=== PATIENT | female | born 1930 ===

== ENCOUNTER 2016-06-28 13:24 | Outpatient (CLI) | payer MEDICARE ==
[2016-06-28 13:57] LABS: Basophils % (Auto) 0.6 % (0.0-1.8); Eosinophils % (Auto) 1.6 % (0.0-4.3); Hematocrit 27.9 % (30.3-42.9); Hemoglobin 8.7 gm/dl (10.1-14.3); Mean Corpuscular HGB Conc 31 % (30-34); Mean Corpuscular Volume 80 fl (79-97); Red Blood Count 3.47 M/mm3 (3.65-5.03); Red Cell Distribution Width 13.2 % (13.2-15.2); White Blood Count 3.4 K/mm3 (4.5-11.0)
[2016-06-28 14:07] LABS: Mean Corpuscular Hemoglobin 25 pg (28-32); Platelet Count 57 K/mm3 (140-440)
[2016-06-28 14:11] LABS: Albumin 3.2 g/dL (3.9-5); Albumin/Globulin Ratio 0.9 %; BUN/Creatinine Ratio 50.71; Bilirubin,Total 0.6 mg/dL (0.1-1.2); C-Reactive Protein 0.6 mg/dL (0.00-1.30); Calcium 9.1 mg/dL (8.4-10.2); Chloride 102.9 mmol/L (98-107); Potassium 3.6 mmol/L (3.6-5.0); Total Protein 6.9 g/dL (6.3-8.2)
[2016-06-28 16:00] LABS: Erythrocyte Sedimentation Rate 32 mm/Hr (0-20)
== END 2016-06-28 13:25 | disposition home or self-care (01) ==
LOC: LABHHL 13:24
DX: I13.0 Hypertensive heart and chronic kidney disease with heart failure and stage 1 through stage 4 chronic kidney disease, or unspecified chronic kidney disease (principal); E11.22 Type 2 diabetes mellitus with diabetic chronic kidney disease; N18.9 Chronic kidney disease, unspecified; I50.9 Heart failure, unspecified; E43 Unspecified severe protein-calorie malnutrition
CPT/HCPCS: 36415; 80053; 85025; 85652; 86140